=== PATIENT | female | born 1950 | race Hispanic/Latino ===

== ENCOUNTER 2018-03-09 16:46 | Emergency (ER) | payer MEDICARE, MEDICAID ==
[~2018-03-09] VITALS: Ht 165.1 cm; Wt 79.5 kg
[~2018-03-09 16:46] MED LIST: AMOXICILLIN500 MG PO; AMOXICILLIN875 MG PO; ANTIBIOT EAR11 AS; ASPIRIN CHEWABL81 MG PO; ATENOLOL50 MG PO; ATORVASTATIN CA10 MG PO; BACTRIM DS1 TAB PO; CIPROFLOXACN500 MG PO; CLARITIN10 M1 PO; CLINDAMYCIN150 MG PO; DEPO-MEDROL80 MG/ML IM; FLEXERIL PO; FLONASE NASAL50 MCG; FLORASTOR250 M1 PO; HYDROXYZ HCL25 MG PO; KEFLEX500 MG PO; KENALOG-4040 MG/ML IC; KETOROLAC60 MG/2 ML IM; LISINOPRIL10 MG PO; LISINOPRIL20 MG PO; LORTAB 1010 MG PO; LORTAB 5 OR; LORTAB 5-325 MG1 TAB PO; LOVENOX30 MG/0.3 SC; MACROBID100 MG PO; MELOXICAM15 MG PO; MELOXICAM7.5 MG PO; MOBIC7.5 M1 PO; MOBIC7.5 MG PO; MUCINEX600 MG PO; NABUMETONE500 MG PO; NO HOME MEDS; OMEPRAZOLE20 MG PO; OXYCODONE HCL5 MG PO; PENICILLN VK500 MG PO; PHENERGAN12.5 MG/TA PO; PREDNISONE10 MG PO; SOLU-MEDROL125 MG IM; TENORMIN OR; TORADOL PO; TRAMADOL HCL50 MG PO; ULTRAM50 M1 PO; VITAMIN D5000 UNIT PO; ZOFRAN ODT4 MG SL; [UNRECOGNIZED DRUG - REMARK]
[2018-03-09] MEDS ORDERED: VOLTAREN1%GEL TOP (17:03)
[2018-03-09] MEDS ORDERED: CYCLOBENZAPR5 MG PO (17:03)
[2018-03-09] MEDS ORDERED: MOTRIN400 MG PO (17:03)
[2018-03-09 17:07] VITALS: BP 145/82
== END 2018-03-09 17:18 | disposition home or self-care (01) ==
LOC: ED 16:46
DX: S39.012A Strain of muscle, fascia and tendon of lower back, initial encounter (principal); I10 Essential (primary) hypertension; X50.0XXA Overexertion from strenuous movement or load, initial encounter; Y93.89 Activity, other specified; Y92.009 Unspecified place in unspecified non-institutional (private) residence as the place of occurrence of the external cause

== ENCOUNTER 2018-11-18 11:11 | Emergency (ER) | payer MEDICARE, MEDICAID ==
[~2018-11-18] VITALS: Ht 165.1 cm; Wt 75.9 kg
[~2018-11-18 11:11] MED LIST changes: +CYCLOBENZAPR5 MG PO; +MOTRIN400 MG PO; +VOLTAREN1%GEL TOP
[2018-11-18 12:25] VITALS: BP 139/89
== END 2018-11-18 12:25 | disposition home or self-care (01) ==
LOC: ED 11:11
DX: M79.18 Myalgia, other site (principal); M25.511 Pain in right shoulder; M19.011 Primary osteoarthritis, right shoulder; T88.1XXA Other complications following immunization, not elsewhere classified, initial encounter

== ENCOUNTER 2020-02-07 14:34 | Emergency (ER) | payer MEDICARE, MEDICAID ==
[~2020-02-07] VITALS: Ht 165.1 cm; Wt 77.3 kg
[2020-02-07] MEDS ORDERED: HYZAAR1 TA1 PO (15:05)
[2020-02-07] MEDS ORDERED: MELOXICAM15 MG PO (15:05)
[2020-02-07] MEDS ORDERED: BACTROBAN TOP (15:19)
[2020-02-07 15:30] VITALS: BP 185/92
== END 2020-02-07 15:30 | disposition home or self-care (01) ==
LOC: ED 14:34
PROC: 2W2FX4Z Dressing of Left Hand using Bandage (ICD-10-PCS; principal; 2020-02-07)
PROC: 2W2DX4Z Dressing of Left Lower Arm using Bandage (ICD-10-PCS; 2020-02-07)
DX: T23.202A Burn of second degree of left hand, unspecified site, initial encounter (principal); T22.112A Burn of first degree of left forearm, initial encounter; T31.0 Burns involving less than 10% of body surface; I10 Essential (primary) hypertension; X10.2XXA Contact with fats and cooking oils, initial encounter; Y93.G3 Activity, cooking and baking; Y92.000 Kitchen of unspecified non-institutional (private) residence as the place of occurrence of the external cause

== ENCOUNTER 2020-08-14 12:32 | Emergency (ER) | payer MEDICARE, MEDICAID ==
[~2020-08-14] VITALS: Ht 165.1 cm; Wt 81.0 kg
[~2020-08-14 12:32] MED LIST changes: +BACTROBAN TOP; +HYZAAR1 TA1 PO
[2020-08-14] MEDS ORDERED: ATENOLOL50 MG PO (13:27)
[2020-08-14] MEDS ORDERED: GENTAK0.32 OD (13:54)
[2020-08-14 14:00] VITALS: BP 166/89
== END 2020-08-14 14:00 | disposition home or self-care (01) ==
LOC: ED 12:32
DX: H10.9 Unspecified conjunctivitis (principal); I10 Essential (primary) hypertension

== ENCOUNTER 2020-10-29 08:24 | Emergency (ER) | payer MEDICARE, MEDICAID ==
[~2020-10-29] VITALS: Ht 165.1 cm; Wt 77.0 kg
[~2020-10-29 08:24] MED LIST changes: +GENTAK0.32 OD
[2020-10-29] MEDS ORDERED: PREDNISONE20 MG PO (09:51)
[2020-10-29] MEDS ORDERED: FAMCICLOVIR500 MG PO (09:51)
[2020-10-29] MEDS ORDERED: HYDROCO/APAP1 TA9 PO (09:51)
[2020-10-29 10:30] VITALS: BP 165/100
== END 2020-10-29 10:36 | disposition home or self-care (01) ==
LOC: ED 08:24
DX: B02.9 Zoster without complications (principal); I10 Essential (primary) hypertension; M19.90 Unspecified osteoarthritis, unspecified site

== ENCOUNTER 2021-07-09 08:18 | Emergency (ER) | payer MEDICARE, MEDICAID ==
[~2021-07-09] VITALS: Ht 165.1 cm; Wt 81.0 kg
[~2021-07-09 08:18] MED LIST changes: +FAMCICLOVIR500 MG PO; +HYDROCO/APAP1 TA9 PO; +PREDNISONE20 MG PO
[2021-07-09 08:26] VITALS: BP 173/91
[2021-07-09 08:30] VITALS: BP 183/89
[2021-07-09 09:01] VITALS: BP 169/93
[2021-07-09 09:30] VITALS: BP 151/89
[2021-07-09] MEDS ORDERED: AMOXICILLIN875 MG PO (09:37)
== END 2021-07-09 09:54 | disposition home or self-care (01) ==
LOC: ED 08:18
DX: J02.9 Acute pharyngitis, unspecified (principal); I10 Essential (primary) hypertension; Z20.818 Contact with and (suspected) exposure to other bacterial communicable diseases; Z20.822 Contact with and (suspected) exposure to COVID-19

== ENCOUNTER 2022-07-16 10:19 | Emergency (ER) | payer MEDICARE, MEDICAID ==
[~2022-07-16] VITALS: Ht 165.1 cm; Wt 72.5 kg
[2022-07-16] MEDS ORDERED: DICLOFENAC SODIUM1 % TD (12:02)
[2022-07-16] MEDS ORDERED: MEDDOSEPAK PO (12:02)
[2022-07-16 12:08] VITALS: BP 181/94
== END 2022-07-16 12:18 | disposition home or self-care (01) ==
LOC: ED 10:19
DX: M17.12 Unilateral primary osteoarthritis, left knee (principal); I10 Essential (primary) hypertension; Z96.643 Presence of artificial hip joint, bilateral

== ENCOUNTER 2022-10-23 09:31 | Emergency (ER) | payer OTHER, MEDICARE, MEDICAID ==
[~2022-10-23] VITALS: Ht 165.1 cm; Wt 74.0 kg
[~2022-10-23 09:31] MED LIST changes: +DICLOFENAC SODIUM1 % TD; +MEDDOSEPAK PO
[2022-10-23 09:53] VITALS: BP 158/95
[2022-10-23 10:01] VITALS: BP 160/83
[2022-10-23 10:15] LABS: BASO% 0.5 % (0-3); EOS% 1.2 % (0-8); HEMATOCRIT 42.4 % (37.0-47.0); HEMOGLOBIN 13.9 g/dl (12.0-16.0); IMMATURE GRANULOCYTES 0.1 % (0.0-5.0); LYMPH% 24.6 % (15-41); MEAN CELL VOLUME 95.1 fL CALC (80.0-100.0); MEAN CORPUSCULAR HGB 31.2 pG CALC (26.0-32.0); MEAN CORPUSCULAR HGB CONC 32.8 g/dL CAL (32.0-36.0); MONO% 7.5 % (2-13); NEUT# 4.81 thou/uL (2.00-7.15); NEUT% 66.1 % (42-76); RED BLOOD COUNT 4.46 mill/uL (4.20-5.60); RED CELL DISTRI WIDTH 13.5 % (11.5-15.5)
[2022-10-23 10:26] LABS: ALKALINE PHOSPHATASE 113 u/l (38-126); ANION GAP 12 (6-22 (CALC)); BILIRUBIN, TOTAL 0.7 mg/dL (0.02-1.3); BUN 13 mg/dL (8-23); BUN/CREATININE RATIO 17 (12-20 (CALC)); CARBON DIOXIDE 25 mmol/l (22-30); CHLORIDE 108 mmol/l (95-108); CREATININE 0.8 mg/dL (0.5-1.0); GFR FOR AFR.AMER. > 60 ML/MIN (>=60 (CALC)); GFR OTHER RACES > 60 ML/MIN (>=60 (CALC)); POTASSIUM 4.2 mmol/l (3.5-5.1); SGOT/AST 28 u/l (9-36); SODIUM 141 mmol/l (137-146); TOTAL PROTEIN 7.4 g/dL (6.3-8.2)
[2022-10-23 10:45] VITALS: BP 168/90
[2022-10-23] MEDS ORDERED: FLEXERIL5 M1 PO (10:56)
[2022-10-23] MEDS ORDERED: NAPROXEN500 MG PO (10:56)
[2022-10-23 11:01] VITALS: BP 159/88
[2022-10-23 11:16] VITALS: BP 156/110
[2022-10-23 11:18] VITALS: BP 159/88
== END 2022-10-23 11:18 | disposition home or self-care (01) | DRG 552 ==
LOC: ED 09:31
PROVIDERS: Family Medicine
DX: M54.2 Cervicalgia (principal); I10 Essential (primary) hypertension; V49.40XA Driver injured in collision with unspecified motor vehicles in traffic accident, initial encounter

== ENCOUNTER 2023-02-19 09:44 | Emergency (ER) | payer MEDICARE, MEDICAID ==
[~2023-02-19] VITALS: Ht 165.1 cm; Wt 72.0 kg
[~2023-02-19 09:44] MED LIST changes: +FLEXERIL5 M1 PO; +NAPROXEN500 MG PO
[2023-02-19 10:39] VITALS: BP 164/88
[2023-02-19 11:01] VITALS: BP 136/80
[2023-02-19 11:30] VITALS: BP 132/86
[2023-02-19 12:01] VITALS: BP 136/80
[2023-02-19 12:31] VITALS: BP 173/91
[2023-02-19] MEDS ORDERED: MEDDOSEPAK PO (13:28)
[2023-02-19] MEDS ORDERED: DIPHENHYDRAM50 M2 PO (13:28)
[2023-02-19 13:45] VITALS: BP 173/91
== END 2023-02-19 13:52 | disposition home or self-care (01) ==
LOC: ED 09:44
DX: T78.1XXA Other adverse food reactions, not elsewhere classified, initial encounter (principal); R21 Rash and other nonspecific skin eruption; X58.XXXA Exposure to other specified factors, initial encounter; I10 Essential (primary) hypertension